=== PATIENT | male | born 1960 ===

== ENCOUNTER 2017-05-12 18:20 | Emergency (ER) | payer MEDICAID ==
[2017-05-12 18:25] VITALS: BP 149/87; PULSE 79; RESP 20; TEMP 98.4; O2SAT 100
--- NOTE | 2017-05-12 20:08 | C.PDOC ---
History Of Present Illness Patient presents to the ER requesting detox from meth, last use was last night. Denies suicidal ideation or homicidal ideation. Explained to patient that there are no detox beds available, patient spoke with general distillery worker who gave a list of referrals and numbers for outpatient detox centers. Patient refuses to be examined. Time Seen by Provider: 05/12/17 20:05 Chief Complaint (Nursing): Substance Abuse History Per: Patient History/Exam Limitations: no limitations Onset/Duration Of Symptoms: Days Current Symptoms Are (Timing): Still Present Suicide/Self Injury Attempted (Context): None Severity: None Pain Scale Rating Of: 0 Associated Symptoms: denies: Depression, Suicidal Thoughts, Other (Homicidal ideation) Recent travel outside of the [place]: No Past Medical History Reviewed: Historical Data, Nursing Documentation, Vital Signs Vital Signs: Last Vital Signs Temp 98.4 F 05/12/17 18:22 Pulse 79 05/12/17 18:22 Resp 20 05/12/17 18:22 BP 149/87 05/12/17 18:22 Pulse Ox 100 05/12/17 20:08 - Medical History PMH: HTN Family History: States: No Known Family Hx - Social History Hx Alcohol Use: No Hx Substance Use: Yes Review Of Systems Psych: Negative for: Suicidal ideation, Other (Homicidal ideation) ED Course And Treatment O2 Sat by Pulse Oximetry: 100 Disposition Counseled Patient/Family Regarding: Studies Performed, Diagnosis - Disposition Referrals: [facility] [Outside] [facility] [Outside] Disposition: HOME/ ROUTINE Disposition Time: 20:06 Condition: FAIR Instructions: Polysubstance Abuse (DC) Forms: [facility] ([place]) - Clinical Impression Clinical Impression: Drug abuse, Drug dependence - Scribe Statement The provider has reviewed the documentation as recorded by the Scribe Speedy Jaramillo
== END 2017-05-12 20:22 | disposition home or self-care (01) ==
LOC: C.ER 18:20
DX: F19.20 Other psychoactive substance dependence, uncomplicated (principal); I10 Essential (primary) hypertension

== ENCOUNTER → 2017-05-14 18:41 | Emergency (ER) | payer MEDICAID ==
[~2017-05-14 18:41] MED LIST: Albuterol-Ipratrop 3 mg / 0.5 (3 ml) UD ONE; Amoxicillin-Clav 875-125 mg Tab PO ONE
== END | disposition left against medical advice (07) ==
LOC: C.ER 18:41
DX: Z02.89 Encounter for other administrative examinations (principal)

== ENCOUNTER 2018-06-08 12:10 | Outpatient (CLI) | payer MEDICAID | END 2018-06-08 12:11 | disposition home or self-care (01) | LOC: C.LAB 12:10 ==